=== PATIENT | male | born 1985 | race African-American/Black ===

== ENCOUNTER 2017-03-12 00:34 | Emergency (ER) | payer MEDICAID, OTHER ==
[~2017-03-12] VITALS: Ht 170.2 cm; Wt 83.9 kg
[2017-03-12 00:38] VITALS: BP 117/78
[2017-03-12] MEDS ORDERED: SILVER SULF. CRM 1% , 25GM ONE (00:58)
[2017-03-12] MEDS ORDERED: SILVER SULF. CRM 1% , 25GM TP ONE (01:00)
== END 2017-03-12 01:27 | disposition home or self-care (01) ==
LOC: ED 00:55
DX: T22.111A Burn of first degree of right forearm, initial encounter (principal); T79.9XXA Unspecified early complication of trauma, initial encounter; X08.8XXA Exposure to other specified smoke, fire and flames, initial encounter; Y93.89 Activity, other specified; Y99.8 Other external cause status; Y92.009 Unspecified place in unspecified non-institutional (private) residence as the place of occurrence of the external cause
CPT/HCPCS: 99283